=== PATIENT | male | born 1950 | race Caucasian/White ===

== ENCOUNTER 2017-02-16 10:03 | Outpatient (CLI) | payer OTHER ==
[~2017-02-16 10:03] MED LIST: ACETAMINOPHEN P1 TA1 PO
== END 2017-02-16 23:00 ==
LOC: LAB SRH 10:03
DX: R10.9 Unspecified abdominal pain (principal)
CPT/HCPCS: 90074; 90112; 90972; 91406; 93140; 97097; 97370